=== PATIENT | female | born 1985 | race Caucasian/White ===

== ENCOUNTER 2017-11-04 02:49 | Emergency (ER) | payer OTHER ==
[2017-11-04 07:07] VITALS: BP 116/69
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
== END 2017-11-04 07:06 | disposition home or self-care (01) ==
LOC: ED 02:49
DX: S09.93XA Unspecified injury of face, initial encounter (principal); Y04.2XXA Assault by strike against or bumped into by another person, initial encounter; Y92.9 Unspecified place or not applicable
CPT/HCPCS: 70450; 70486; 99282